=== PATIENT | male | born 1990 | race Caucasian/White ===

== ENCOUNTER 2016-03-25 19:03 | Emergency (ER) | payer OTHER ==
[~2016-03-25] VITALS: Ht 177.8 cm; Wt 68.0 kg
[2016-03-25 19:07] VITALS: BP 119/83; TEMP 36.5; Ht 177.8 cm; Wt 68.0 kg
[2016-03-25] MEDS ORDERED: ATOM60CA PO (19:18)
[2016-03-25] MEDS ORDERED: PROPARACAINE HCL 0.5% OP SOLN 15 ML BTL OP STA (19:25)
[2016-03-25] MEDS ORDERED: ARTIFICIAL TEARS OP OINT 3.5 GM TUBE OP ONE (20:00)
[2016-03-25 20:40] VITALS: PULSE 71; O2SAT 98
--- NOTE | 2016-03-25 20:52 | EMERGENCY ROOM VISIT NOTE ---
History First contact with patient: 19:24 Chief Complaint: EYE ASSESSMENT Stated Complaint: SOMETHING IN EYE, WORK RELATED History of Present Illness The patient is a 25 year old male who presents to the Emergency Room with complaints of a possible metallic foreign body in the left eye. The patient reports that he used a band saw to cut steel today at work. He did not notice any discomfort while working, but did notice discomfort while driving home. He tried to flush his eye with persistent discomfort. He believes that a piece of metal is stuck on the front of his eye. He rates his discomfort a 3 out of 10. Tetanus immunization is up-to-date. He denies any blurred vision. Review of Systems 10 system review was performed and was negative except for pertinent positives and negatives as indicated in history of present illness Past Medical/Surgical History Medical Problems: (1) No significant past medical history Surgical Problems: (1) History of ankle surgery Family History FH: diabetes mellitus FH: hypertension Social History Smoking Status: Former Smoker Alcohol Use: occasionally Housing Status: lives alone Occupation Status: employed Current/Historical Medications Scheduled Atomoxetine (Strattera), 120 MG PO QAM Allergies Coded Allergies: Bacitracin (Verified Allergy, Intermediate, REDNESS AND LOOKS INFECTED, 12/30) Neomycin (Verified Allergy, Intermediate, REDNESS AND LOOKS INFECTED, 03/25) Polymyxin B (Verified Allergy, Intermediate, REDNESS AND LOOKS INFECTED, ) Physical Exam Vital Signs Date Time Temp Pulse Resp B/P Pulse Ox O2 Delivery O2 Flow Rate FiO2 03/25/16 20:40 71 18 98 03/25/16 19:07 36.5 83 20 119/83 98 Room Air Right Eye Acuity: 20/15 corrected Left Eye Acuity: 20/20 corrected Pain Rating (0-10): 0 Physical Exam CONSTITUTIONAL: Healthy and well nourished. Alert and oriented X 3 with positive affect. HEENT: Normocephalic, atraumatic. Pupils equal, round and reactive. No bleeding is noted from the left eye. No conjunctival injection. EOMs intact without discomfort. Visual acuity was noted. NECK: Full active range of motion without discomfort. RESPIRATORY: Clear to auscultation bilaterally with no wheezing, crackles, rhonchi or stridor. CARDIOVASCULAR: Regular rate and rhythm with no murmurs, rubs or gallops. INTEGUMENTARY: No rash or other significant dermatologic conditions noted. NEUROLOGIC: No focal neurologic deficits noted. Medical Decision & Procedures Medications Administered Medications (Trade) Dose Ordered Sig/Ankuhs Route Start Time Stop Time Status Last Admin Dose Admin Artificial Tears (Lacri-Lube Oph Oint) 1 appln NOW ONCE OP 03/25/16 20:00 03/25/16 20:02 DC 03/25/16 20:00 1 APPLN Procedure Slit lamp and fluorescein exam were performed after applying 2 Alcaine eyedrops to the left eye. This completely resolved the patient's discomfort. Slit lamp exam shows a metallic corneal foreign body near the central axis of vision at 5: 00. Negative hyphema. The metallic foreign body was removed using an Bracken brush. He still had a very small residual rust ring. Fluorescein exam shows no evidence for additional abrasions. Negative Chidi test. ED Course Patient history and physical exam were performed. Nurse's notes were reviewed. Visual acuity was normal. Slit lamp exam shows evidence for a metallic corneal foreign body. This was removed with a minimal residual rust ring. The patient was provided Lacri-Lube for relief. He was encouraged to intermittently apply a cool compress to the eye. Ibuprofen and Tylenol in alternating fashion as needed for discomfort. He refused any prescription analgesics. He was instructed to follow-up with an program engagement director if symptoms are not improving within the next 48 hours. The patient was happy with plan of care, voiced understanding of all discharge instructions, and denied any discomfort at the conclusion of my exam. Medical Decision Impression Primary Impression: Foreign body of left cornea with residual material Additional Impression: Work related injury Departure Information Dispostion Home / Self-Care Referrals Andreas Kessler M.D. Forms HOME CARE DOCUMENTATION FORM, IMPORTANT VISIT INFORMATION Patient Instructions A Signature Page, [facility] Additional Instructions Intermittently apply a cool compress. Ibuprofen 800 mg and/or Tylenol 1000 mg every 8 hours. You may also alternate these medications for more effective pain relief: Ibuprofen --4 HRS--> Tylenol --4 HRS--> ibuprofen --4 HRS--> Tylenol .... Use Lacri-Lube for additional relief. Follow-up with an program engagement director (Dr. Kessler) if symptoms have not improved within the next 36-48 hours, or if you have any residual blurred vision. Problem Qualifiers Primary Impression: Foreign body of left cornea with residual material Encounter type: initial encounter Qualified Codes: T15.02XA - Foreign body in cornea, left eye, initial encounter
== END 2016-03-25 20:42 | disposition home or self-care (01) ==
LOC: C.EDB 19:06 → C.EDD 20:42
DX: T15.02XA Foreign body in cornea, left eye, initial encounter (principal); X58.XXXA Exposure to other specified factors, initial encounter; Y92.89 Other specified places as the place of occurrence of the external cause; Y99.0 Civilian activity done for income or pay; Z87.891 Personal history of nicotine dependence; Z88.8 Allergy status to other drugs, medicaments and biological substances; Z83.3 Family history of diabetes mellitus; Z82.49 Family history of ischemic heart disease and other diseases of the circulatory system

== ENCOUNTER 2016-07-03 01:57 | Emergency (ER) | payer OTHER ==
[~2016-07-03] VITALS: Ht 180.3 cm; Wt 69.7 kg
[~2016-07-03 01:57] MED LIST: ATOM60CA PO
[2016-07-03 02:02] VITALS: Ht 180.3 cm; Wt 69.7 kg
[2016-07-03] MEDS ORDERED: PROPARACAINE HCL 0.5% OP SOLN 15 ML BTL OP STA (02:25)
[2016-07-03] MEDS ORDERED: CYCLOPENTOLATE HCL 1% OP SOLN 2 ML BTL OP ONE (03:00)
[2016-07-03] MEDS ORDERED: ERYTHROMYCIN OP OINT 5 MG/GM 3.5 GM TUBE OP ONE (03:00)
--- NOTE | 2016-07-03 03:01 | EMERGENCY ROOM VISIT NOTE ---
History First contact with patient: 02:10 Chief Complaint: EYE ASSESSMENT Stated Complaint: IRRITATION IN EYE History of Present Illness The patient is a 25 year old male who presents to the Emergency Department by private vehicle for evaluation of irritation to the LEFT eye. 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 He has not been grinding today. He did rig welder there today. He reports that he did wear his mask. He reports a foreign body sensation. He did not flush his eyes. He was awoken at 1 AM with the symptoms. He does wear glasses. He does not wear contact lenses. He reports no blurry or double vision. He reports moderate tearing from the affected eye. The patient had a history of metallic foreign body in the eye approximately one year ago. The patient rates his current discomfort as 0/10. He denies any headaches, dizziness, lightheadedness, fevers, chills, neck pain/stiffness, nausea, or vomiting. Review of Systems A complete 10-point Review of Systems was discussed with the patient, with pertinent positives and negatives listed in the History of Present Illness. All remaining Review of Systems questions can be considered negative unless otherwise specified. Past Medical/Surgical History Medical Problems: (1) No significant past medical history Surgical Problems: (1) History of ankle surgery Family History FH: diabetes mellitus FH: hypertension Social History Smoking Status: Never Smoker Smokeless Tobacco Use: No Alcohol Use: occasionally Housing Status: lives alone Occupation Status: employed Current/Historical Medications Scheduled Atomoxetine (Strattera), 120 MG PO QAM Allergies Coded Allergies: Bacitracin (Verified Allergy, Intermediate, REDNESS AND LOOKS INFECTED, ) Neomycin (Verified Allergy, Intermediate, REDNESS AND LOOKS INFECTED, 07/03) Polymyxin B (Verified Allergy, Intermediate, REDNESS AND LOOKS INFECTED, ) Physical Exam Vital Signs Date Time Temp Pulse Resp B/P Pulse Ox O2 Delivery O2 Flow Rate FiO2 07/03/16 03:15 36.3 79 20 111/73 99 07/03/16 02:02 36.3 79 20 111/73 99 Room Air Right Eye Acuity: 20/15 Left Eye Acuity: 20/20 Pain Rating (0-10): 0 Physical Exam VITAL SIGNS - Vital signs and nursing notes were reviewed. GENERAL - 25-year-old male appearing his stated age. Communicates well with provider and answers questions appropriately. HEAD - Normocephalic, Atraumatic. No Borden's Sign or Raccoon's Eyes. No depressed skull fractures palpable. EYES - PERRL with EOMI bilaterally. Sclera without noticeable foreign body or excoriations. Mild injection noted in the LEFT eye. Without subconjunctival hemorrhage. Palpebral conjunctiva pink and moist with no injection or discharge noted. Slit lamp examination performed as further described. EARS - No deformities of external structures noted on gross examination bilaterally. Handle of malleus, umbo, cone of light, pars tensa/flaccid all easily visualized. NOSE - Midline and without cyanosis. Without discharge. MOUTH/OROPHARYNX - Without perioral cyanosis. Tongue midline with equal elevation of palate bilaterally. No tonsillar hypertrophy, erythema, or exudates noted. Good dentition noted. NECK - FROM assessed. No cervical lymphadenopathy noted. Medical Decision & Procedures Medications Administered Medications (Trade) Dose Ordered Sig/Ankush Route Start Time Stop Time Status Last Admin Dose Admin Proparacaine HCl (Alcaine 0.5% Oph Soln) 2 drops NOW STAT OP 07/03/16 02:25 07/03/16 02:26 DC 07/03/16 02:36 2 DROPS Erythromycin (Erythromycin Oph Oint) 1 appln NOW ONCE OP 07/03/16 03:00 07/03/16 03:01 DC 07/03/16 03:50 1 APPLN Cyclopentolate HCl (Cyclogyl 1% Oph Soln) 1 drops NOW ONCE OP 07/03/16 03:00 07/03/16 03:01 DC 07/03/16 03:49 1 DROPS Procedure Slit Lamp Examination was performed of the LEFT eye(s). Alcaine drops were applied to the affected eye(s) for proper anesthetization. The affected eye(s) were stained with Fluorescein stain to precipitate adequate visualization of any conjunctival/scleral excoriations or ulcers. The patient's face was comfortably rested on the chin guard of the slit lamp apparatus. The lights were dimmed and the affected eye(s) were thoroughly examined under microscopy using the blue light. No uptake was present throughout. Additionally, the eye(s ) were examined under microscopy using the regular light. Close examination revealed no foreign bodies. No hyphema or hypopyon. Patient tolerated the procedure well and no complications were met. An Automated Tonometer was utilized to obtain bilateral orbital pressures. The pressures in the LEFT eye were found to be 15, 16, 18, and 14. The pressures in the RIGHT eye were found to be 15, 14, 13, and 14. Patient tolerated the procedure well and no complications were met. ED Course Patient was seen and evaluated by myself. Slit-lamp exam and automated tonometry were performed. Visual acuity was assessed. Patient was treated with Cyclogyl and topical erythromycin ophthalmic ointment. Patient will follow up with ophthalmology from today's visit. He will return for changing/ worsening symptoms. Patient discharged home in good condition. Medical Decision Given the patient's presentation and exam findings, I did elect to perform the above-mentioned workup. The patient presents today with irritation to the LEFT eye. He is a rig welder. He has concern for foreign body. There is no foreign body noted on exam. The patient is likely experiencing for keratitis of the affected eye secondary to welding. He responded well to topical analgesic drops. He was treated with Cyclogyl and erythromycin ophthalmic appointment. He will follow up with ophthalmology with whom is established. He will return for changing/worsening symptoms. Patient discharged home in good condition. In the evaluation and treatment of this patient, the following differential diagnoses were considered: Corneal Abrasion, Conjunctivitis, Eye Contusion, Globe Injury, Orbital Floor Injury (Blowout Fracture), Corneal Ulcer, Keratitis , Herpes Zoster Ophthalmic, Blepharitis, Orbital Cellulitis, Iritis, Scleritis/ Episcleritis, Uveitis, Temporal Arteritis, Subconjunctival Hemorrhage. Impression Primary Impression: Photokeratitis of left eye Departure Information Dispostion Home / Self-Care Condition GOOD Referrals No Doctor, Assigned (PCP) Wm Ruvalcaba MD Patient Instructions My [facility] Additional Instructions You have been treated in the Emergency Department for LEFT Eye Pain - Photokeratitis. You have been prescribed Erythromycin Ophthalmic ointment. This is an antibiotic ointment which will help prevent an infection from developing in your affected eye. You should apply a 1 cm ribbon of the ointment to the lower part of the affected eye up to 6 times per day for the next 10 days. Please use the Cyclogyl drops twice daily as needed for pain to the LEFT eye. For pain control, you can use the following [id number] medicines (if >12 yo): - Regular strength (325mg/tab) Tylenol (acetaminophen) 2 tabs every 4-6 hours as needed. Do not exceed 12 tablets in a 24 hour period. Avoid taking more than 4 grams (4000 mg) of Tylenol per day. This includes any other sources of acetaminophen you may take on a regular basis. - Regular strength (200 mg/tab) Advil (ibuprofen) 1-2 tabs every 4-6 hours as needed. Do not exceed a dose of 3200 mg per day. Avoid rubbing your eyes for the next few days as this can cause irritation. Wear sunglasses when outside to help minimize your pain. You should relax in a quiet, dark room to help minimize your symptoms. You should seek evaluation of your Photokeratitis by an hospital supervisor following your visit to the Emergency Department. The Emergency Department is not capable of treating optic issues long-term. You should call your hospital supervisor as soon as possible to make an appointment for evaluation of your follow-up care. Return to the emergency department if you develop the following symptoms despite treatment course outlined above: blurry vision, loss of vision, fever, intractable pain, increased redness, swelling, or purulent discharge.
[2016-07-03 03:15] VITALS: BP 111/73; PULSE 79; TEMP 36.3; O2SAT 99
== END 2016-07-03 03:46 | disposition home or self-care (01) ==
LOC: C.EDB 01:58
DX: H16.132 Photokeratitis, left eye (principal); Z87.828 Personal history of other (healed) physical injury and trauma; Z88.8 Allergy status to other drugs, medicaments and biological substances; Z83.3 Family history of diabetes mellitus; Z82.49 Family history of ischemic heart disease and other diseases of the circulatory system